=== PATIENT | male | born 2000 | race Caucasian/White ===

== ENCOUNTER 2021-08-03 19:23 | Emergency (ER) | payer SELFPAY ==
[~2021-08-03] VITALS: Ht 175.3 cm; Wt 97.0 kg
[~2021-08-03 19:23] MED LIST: AMOXICILLIN500 MG PO; AUGMENTIN875TAB PO; CORTISPORIN OTI10 ML AD; NO; TYLENOL CH160 MG/5 M OR
[2021-08-03 19:33] VITALS: BP 131/94
[2021-08-03 20:00] VITALS: BP 128/86
[2021-08-03] MEDS ORDERED: ZPAK PO (20:28)
[2021-08-03 20:30] VITALS: BP 131/90
[2021-08-03 20:35] VITALS: BP 131/90
== END 2021-08-03 20:40 | disposition home or self-care (01) | DRG 866 ==
LOC: ED 19:23
DX: B34.9 Viral infection, unspecified (principal); Z20.822 Contact with and (suspected) exposure to COVID-19